=== PATIENT | male | born 1990 | race Caucasian/White ===

== ENCOUNTER 2016-11-14 08:36 | Outpatient (CLI) | payer MEDICAID | END 2016-11-14 08:37 | disposition home or self-care (01) | DX: E11.9 Type 2 diabetes mellitus without complications (principal) ==

== ENCOUNTER 2017-03-15 08:00 | Outpatient (CLI) | payer MEDICAID ==
[2017-03-15 13:17] LABS: CALCIUM 9.2 mg/dL (8.5-10.3); CREATININE 0.8 mg/dL (0.6-1.2); POTASSIUM 3.8 mmol/L (3.5-5.0)
[2017-03-15 13:43] LABS: HEMOGLOBIN A1C 1.15 g/dL
== END 2017-03-15 08:01 | disposition home or self-care (01) ==
LOC: LAB.N 08:00
PROVIDERS: ATTEND Family Medicine
DX: E11.9 Type 2 diabetes mellitus without complications (principal)
CPT/HCPCS: 36415; 80048; 83036

== ENCOUNTER 2017-06-23 08:00 | Outpatient (CLI) | payer MEDICAID ==
[2017-06-23 19:24] LABS: CALCIUM 9.1 mg/dL (8.5-10.3); CREATININE 0.8 mg/dL (0.6-1.2); POTASSIUM 3.9 mmol/L (3.5-5.0)
[2017-06-23 19:56] LABS: HEMOGLOBIN A1C 0.91 g/dL
== END 2017-06-23 08:01 | disposition home or self-care (01) ==
LOC: LAB.N 08:00
PROVIDERS: ATTEND Family Medicine
DX: E11.9 Type 2 diabetes mellitus without complications (principal)
CPT/HCPCS: 36415; 80048; 83036

== ENCOUNTER 2017-10-09 10:00 | Outpatient (CLI) | payer MEDICAID ==
[2017-10-09 13:57] LABS: HB2 TOTAL 16.5 g/dL; HEMOGLOBIN A1C 1.22 g/dL; HEMOGLOBIN A1C % 8.9 % (4.6-6.2)
[2017-10-09 14:07] LABS: CALCIUM 8.9 mg/dL (8.5-10.3); CREATININE 0.9 mg/dL (0.6-1.2)
== END 2017-10-09 10:01 | disposition home or self-care (01) ==
LOC: LAB.N 10:00
PROVIDERS: ATTEND Family Medicine
DX: E11.9 Type 2 diabetes mellitus without complications (principal)
CPT/HCPCS: 36415; 80048; 83036

== ENCOUNTER 2018-10-10 19:30 | Emergency (ER) | payer MEDICAID, OTHER ==
[2018-10-10 19:42] VITALS: BP 153/87
[2018-10-10] MEDS ORDERED: ERYTHROMYCIN OPHTH OINT 1 GM TUBE EACHEYE STA (19:57)
[2018-10-10] MEDS ORDERED: NEOMYCIN/POLYMYX/HC OTIC DROPS EACHEAR STA (19:57)
--- NOTE | 2018-10-10 20:01 | ED Physician Documentation ---
PD HPI OPHTHO - Stated complaint Stated Complaint: EYE REDNESS - Chief complaint Chief Complaint: Heent - History obtained from History obtained from: Patient - History of Present Illness Timing - onset: Today (This is a 27-year-old type II diabetic who Has had a little bit of sore throat and runny nose but today has purulent eye drainage especially on the right much less so on the left. He is also noted bilateral ear irritation with some drainage especially on the right.) Review of Systems Constitutional: denies: Fever, Chills Eyes: reports: Discharge, Irritation. denies: Loss of vision, Decreased vision, Photophobia Ears: reports: Ear pain, Drainage/discharge. denies: Loss of hearing Nose: reports: Rhinorrhea / runny nose Throat: reports: Sore throat PD PAST MEDICAL HISTORY - Past Medical History Endocrine/Autoimmune: Type 2 diabetes - Past Surgical History Past Surgical History: No General: Appendectomy - Present Medications Home Medications: Ambulatory Orders Medication Instructions Recorded Confirmed Metformin HCl [Glucophage] 1,000 mg PO DAILY 01/17/14 06/24/16 Cephalexin [Keflex] 500 mg PO Q6H 7 Days capsule 06/24/16 Cholecalciferol (Vitamin D3) 100 mg PO DAILY 06/24/16 06/24/16 [Vitamin D3] Terbinafine [Lamisil] 250 mg PO DAILY 06/24/16 06/24/16 Ciprofloxacin HCl [Cipro] 500 mg PO BID #20 tablet 10/10/18 Erythromycin Base [Erythromycin 1 appful OP 5XD 7 Days #1 oint...g. 10/10/18 Ophthalmic Ointment] Neomycin/Polymyx/Hc Otic Drops 4 drops OT TID #1 bottle 10/10/18 [Cortisporin Ear Susp] glipiZIDE [Glipizide] 5 mg PO DAILY #30 tablet 10/10/18 - Allergies Allergies/Adverse Reactions: Allergies Allergy/AdvReac Type Severity Reaction Status Date / Time No Known Drug Allergies Allergy Verified 10/10/18 19:42 - Social History Does the pt smoke?: No Smoking Status: Never smoker Does the pt drink ETOH?: No Does the pt have substance abuse?: No - Immunizations Immunizations are current?: Yes - POLST Patient has POLST: No PD ED PE NORMAL - Vitals Vital signs reviewed: Yes - General General: Alert and oriented X 3, No acute distress - HEENT HEENT: Other (Modest right-sided mucopurulent conjunctivitis and the conjunctive is red on the left but without any drainage. He has bilateral external otitis that is not Occlusive, no mastoid tenderness.) - Neck Neck: Supple, no meningeal sign, No bony TTP - Neuro Neuro: Alert and oriented X 3, Normal speech Results - Vitals Vitals: Vital Signs - 24 hr 10/10/18 19:40 Temperature 36.6 C Heart Rate 91 Respiratory 18 Rate Blood Pressure 153/87 H O2 Saturation 97 Oxygen O2 Source Room air - Labs Labs: Laboratory Tests 10/10/18 20:01 POC Whole Bld Glucose 381 H PD MEDICAL DECISION MAKING - ED course ED course: This is a 27-year-old type II diabetic who presents with bilateral conjunctivitis and bilateral external otitis. His diabetes is uncontrolled and this is also an end oral antibiotic therapy. He admits he is not taking him metformin due to side effects, specifically diarrhea and as such I am prescribing his glipizide. Departure - Departure Disposition: Home, Self Care Clinical Impression: Uncontrolled type 2 diabetes mellitus Qualifiers: Glycemic state: with hyperglycemia Qualified Code(s): E11.65 - Type 2 diabetes mellitus with hyperglycemia Conjunctivitis Qualifiers: Conjunctivitis type: acute Acute conjunctivitis type: bacterial Laterality: bilateral Qualified Code(s): H10.33 - Unspecified acute conjunctivitis, bilateral External otitis Qualifiers: Otitis externa type: swimmer's ear Chronicity: acute Laterality: bilateral Qualified Code(s): H60.333 - Swimmer's ear, bilateral Condition: Good Record reviewed to determine appropriate education?: Yes Instructions: ED Otitis Externa, ED Hyperglycemia Diabetic, ED Conjunctivitis Nonspecific Follow-Up: [facility] [Provider Group] - Within 1 week Prescriptions: Ciprofloxacin HCl [Cipro] 500 mg PO BID #20 tablet Erythromycin Base [Erythromycin Ophthalmic Ointment] 1 appful OP 5XD 7 Days #1 oint...g. glipiZIDE [Glipizide] 5 mg PO DAILY #30 tablet Neomycin/Polymyx/Hc Otic Drops [Cortisporin Ear Susp] 4 drops OT TID #1 bottle Comments: As discussed it is important and imperative to get your blood sugars down so that the infections go away and so you do not develop long-term complications from the diabetes. We are prescribing the glipizide since she did not tolerate the metformin due to diarrhea. You must follow-up with your doctor within the week for blood pressure check and blood sugar check. Your blood pressure was high tonight as well. Return if worse in any way. Forms: Activity restrictions
[2018-10-10] MEDS ORDERED: CIPROFLOXACIN 250 MG TABLET PO STA (20:14)
[2018-10-10] MEDS ORDERED: glipiZIDE 5 MG TABLET PO STA (20:14)
== END 2018-10-10 20:29 | disposition home or self-care (01) ==
LOC: ED 19:30
DX: H10.33 Unspecified acute conjunctivitis, bilateral (principal); H60.333 Swimmer's ear, bilateral; E11.9 Type 2 diabetes mellitus without complications; Z79.84 Long term (current) use of oral hypoglycemic drugs
CPT/HCPCS: 99282; 99283; A9270; J3490